=== PATIENT | male | born 1960 | race Caucasian/White ===

== ENCOUNTER 2018-05-25 15:09 | Emergency (ER) | payer OTHER ==
[2018-05-25] MEDS: IBUPROFEN 600 MG TAB PO (16:13)
[2018-05-25] MEDS: METHYLPREDNISOLONE 125 MG INJ IM (16:13)
== END 2018-05-25 18:05 | disposition home or self-care (01) ==
LOC: FTE 15:09
DX: R20.0 Anesthesia of skin (principal)
CPT/HCPCS: 72040; 72072; 72100; 96372; 99284-25